=== PATIENT | male | born 1965 | race African-American/Black ===

== ENCOUNTER 2020-04-23 10:43 | Inpatient (IN) | payer OTHER ==
[2020-04-23] VITALS (17 sets, daily range): BP systolic 136–262; BP diastolic 80–175
[~2020-04-23] VITALS: Ht 190.5 cm; Wt 122.9 kg
[2020-04-23 11:30] LABS: ABSOLUTE NEUTROPHILS 6.1 thou/uL (1.4-8.2); BASOPHILS 0.3 % (0.0-2.0); EOSINOPHILS 0.5 % (0.0-3.0); HEMATOCRIT 50.3 % (42.0-52.0); HEMOGLOBIN 16.7 gm/dL (14.0-18.0); LYMPHOCYTES 18.9 % (24.0-44.0); MCH 31.3 pg (26.0-34.0); MCHC 33.2 g/dL (28.0-37.0); MCV 94.3 fL (80.0-100.0); MONOCYTES 8.6 % (1.0-8.0); PLATELET COUNT 197 thou/uL (150-400); POLYS 71.7 % (36.0-66.0); RBC 5.33 mil/uL (4.50-6.00); RDW 13.8 % (10.5-14.5); WBC 8.5 thou/uL (4.0-11.0)
[2020-04-23 11:40] LABS: CALCIUM 9.1 mg/dL (8.5-10.1); CREATININE 2.5 mg/dL (0.7-1.3); POTASSIUM 4.2 mmol/L (3.5-5.1)
[2020-04-23 11:48] LABS: TROPONIN-I 0.3 ng/mL (<0.06)
[2020-04-23 12:35] LABS: CHOLESTEROL 250 mg/dL (<200); HDL CHOLESTEROL 43 mg/dL (>40); LDL CHOLESTEROL 172 mg/dL (<100); TC:HDL 5.8 Ratio (Not establshd); TRIGLYCERIDE 177 mg/dL (<150); VLDL 35 mg/dL (<40)
--- NOTE | 2020-04-23 22:52 | NUR ---
This patient admitted to ICU room 244 at 1945. This RN to bedside. Patient came up on cardene gtt with orders to keep systolic under 180. Patient still complaining of left chest pain. Hydrocodone gives partial pain relief. No cardiac strip changes. Will begin to wean cardene gtt and monitor BP.
[2020-04-24] VITALS (31 sets, daily range): BP systolic 147–183; BP diastolic 88–118
--- NOTE | 2020-04-24 11:48 | NUR ---
ASSUMED CARE OF PT AT 0700, PT IS A/O TIMES 4 AND A GCS OF 15. PT WITH VSS AND AFIBRILE. HE DENIES PAIN OR DISCOMFORT. PT WITH ORDER TO XFER OUT OF ICU. REPORT CALLED AND GIVEN TO ACCEPTING NURSE. PT ASSISTED TO NEXT FLOOR AND SETTLED DOWN IN ROOM.
--- NOTE | 2020-04-24 19:33 | NUR ---
PT TX FROM ICU THIS AM APPROXIMATELY 1000. REPORT TAKEN FROM [facility] ICU/RN. VSS. NSR ON THE MONITOR. PT REPORTS "SOME" CHEST PAIN. PT STATES "ITS WHEN I TAKE A DEEP BREATH IN" WHEN CHEST PAIN OCCURS. CARDIOLOGY AWARE. WILL CONTINUE TO MONITOR. VSS REMAIN STABLE. PT NPO UNTIL RENAL US AND ECHO TO BE COMPLETE. PT RESTING IN BED WITH CALL LIGHT IN REACH. WILL CONTINUE TO MONITOR.
[2020-04-25] VITALS (8 sets, daily range): BP systolic 156–200; BP diastolic 86–113
[2020-04-25 03:58] LABS: ALBUMIN 3.2 g/dL (3.4-5.0); CALCIUM 8.9 mg/dL (8.5-10.1); CREATININE 2.2 mg/dL (0.7-1.3); PHOSPHORUS 3.8 mg/dL (2.5-4.9); POTASSIUM 4.4 mmol/L (3.5-5.1)
--- NOTE | 2020-04-25 04:18 | NUR ---
ASSUME CARE 1900. PT STABLE. BP RUNS HIGH. COMPLAINS OF PAIN IN LEFT CHEST WITH MILD SOA WITH ACTIVITY. GOOD ACTIVITY TOLERANCE. SR ON MONITOR. NO DISTRESS NOTED. ASSESSMENT CHARTED. PROGRESSING WELL WITH POC. PLAN IS TO CONTINUE TO MONITOR AND MANAGE BP/ FOLLOW WITH CARDIOLOGY POC. WILL CONTINUE TO MONITOR AND FOLLOW WITH POC
--- NOTE | 2020-04-25 07:36 | EKG ---
[facility] [address] [employer] [place] [address] ELECTROCARDIOGRAM REPORT Name: KIMO HERNANDEZ Room #: 200-I ADM IN M.R.#: [id number] Admission: 04/23/20 Attend Phys: Pawan Starks Discharge: Date of : 63 Report #: [id number] THIS REPORT FOR: cc: FAM - No family physician/PCP FAM - No family physician/PCP Mathew Vila MD [facility] ~ THIS REPORT FOR: //name// [facility] ED Test Date: 2020-04-23 Test Time: 10:48:08 Pat Name: KIMO HERNANDEZ Department: Room: 200 Gender: M [employer] Parer: homer : 1965 Requested By: eGn Snow Order Number: [id number] MD: Mathew Vila Measurements Intervals [place] Rate: 98 P: 49 CT: 158 QRS: 42 QRSD: 88 T: -6 QT: 360 QTc: 460 Interpretive Statements Sinus rhythm Left atrial enlargement Anterior ST elevation, probably due to LVH No previous ECG available for comparison Electronically Signed On 04-25-2020 7:35:51 STAFFING ASSISTANT by Mathew Vila [email or web address] <ELECTRONICALLY SIGNED> By: Mathew Vila MD, FACC 04/25/20 0735 1048 1048 Mathew Vila MD, [facility] /EPI
--- NOTE | 2020-04-25 08:08 | HC ---
[facility] [place] [address] CONSULTATION Name: KIMO HERNANDEZ Room #: 200-I ADM IN .R.#: [id number] Admission: 04/23/20 Attend Phys: Pawan Starks Discharge: Date of : 63 Report #: [id number] THIS REPORT FOR: cc: JOSEFINA - No family physician/PCP FAM - No family physician/PCP Cody Gibbs MD ~ DATE OF SERVICE: 04/24/2020 CARDIOLOGY CONSULTATION INDICATION: Chest pain. HISTORY OF PRESENT ILLNESS: This is a 55-year-old gentleman presenting with acute onset of chest pain. He has not seen a doctor in more than 8 years. He woke up with a discomfort in the left sternal area radiating up into the neck and shoulder area. He denies any associated symptoms of dyspnea, diaphoresis, nausea or fevers. In the ER, he was noted to have a systolic blood pressure greater than 260 mmHg. Initial workup revealed a troponin level is 0.3. EKG revealed LVH, but no acute ST segment changes. The patient reports that his symptoms are somewhat reproducible with movement of his upper torso. No change with deep inspiration or coughing. It is somewhat reproducible with palpation. PAST MEDICAL HISTORY: Has not seen a physician in quite some time. ALLERGIES: None. MEDICATIONS: None. SOCIAL HISTORY: Denies tobacco use. FAMILY HISTORY: Negative for premature CAD. REVIEW OF SYSTEMS: A full 10-point review of systems performed. Only the pertinent positives and negatives are described in HPI. PHYSICAL EXAMINATION: VITAL SIGNS: Blood pressure is 160/90, heart rate is 80 beats per minute. GENERAL APPEARANCE: This is a well-developed, well-nourished male in no acute distress. HEENT: Normocephalic and atraumatic. Oral mucosa moist. NECK: Supple. LUNGS: Clear to auscultation. CARDIAC: Regular rate and rhythm, S1 and S2 positive. ABDOMEN: Soft, nontender. [facility] [address] [place] [address] CONSULTATION Name: KIMO HERNANDEZ Room #: 200-I [facility].#: [id number] Admission: 04/23/20 Attend Phys: Pawan Starks Discharge: Date of : 63 Report #: [id number] EXTREMITIES: No edema, no cyanosis. IMAGING STUDIES: ECG reveals sinus rhythm, LVH, J point elevation in V2. LABORATORY VALUES: Troponin 0.3. Creatinine is 2.5. ASSESSMENT AND PLAN: 1. Chest pain syndrome, the etiology includes ischemia, musculoskeletal. His symptoms are somewhat reproducible with movement of his torso. However, there is troponin elevation, which may be related to hypertensive urgency. Given his risk factors, he will need to proceed with stress testing. 2. Hypertensive urgency, improved with initiation of labetalol, still has room for increasing the dose. 3. Renal insufficiency, recommend Nephrology evaluation. 4. Hypercholesterolemia, LDL is 172, we will initiate statin therapy. <ELECTRONICALLY SIGNED> By: Cody Gibbs MD 04/25/20807 1116 Cody Gibbs MD /sumi
--- NOTE | 2020-04-25 13:40 | 2DMMODE ---
[facility] [address] [place] [address] 2 D/M-MODE ECHOCARDIOGRAM Name: KIMO HERNANDEZ Room #: 200-I ADM IN M.R.#: [id number] Admission: 04/23/20 Attend Phys: Pawan Starks Discharge: Date of : 63 Report #: [id number] THIS REPORT FOR: cc: FAM - No family physician/PCP FAM - No family physician/PCP Cody Gibbs MD ~ APPROVED REPORT Study performed: 04/25/2020 12:39:17 EXAM: Comprehensive 2D, Doppler, and color-flow Echocardiogram Patient Location: Echo lab Room #: 200 Status: routine BSA: 2.51 HR: 66 bpm BP: 163/93 mmHg Rhythm: NSR Other Information Study Quality: Good Indications Congestive Heart Failure Chest Pain Hx: HTN. 2D Dimensions RVDd: 39.42 mm IVSd: 15.66 (7-11mm) LVOT Diam: 23.50 (18-24mm) LVDd: 49.98 mm PWd: 13.33 (7-11mm) Ascending Ao: 33.30 (22-36mm) LVDs: 32.91 (25-40mm) Aortic Root: 32.84 mm Volumes Left Atrial Volume (Systole) Single Plane 4CH: 90.43 mL Single Plane 2CH: 70.92 mL LA ESV Index: 34.00 mL/m2 Mitral Valve E/A Ratio: 1.2 MV Decel. Time: 219.29 ms MV E Max Iain.: 0.92 m/s [facility] [address] [place] [address] 2 D/M-MODE ECHOCARDIOGRAM Name: KIMO HERNANDEZ Room #: 200-I [facility] [place] ..#: [id number] Admission: 04/23/20 Attend Phys: Pawan Teague Discharge: Date of : 63 Report #: [id number] MV A Iain.: 0.75 m/s MV PHT: 63.59 ms IVRT: 115.34 ms Pulmonary Valve PV Peak Iain.: 0.95 m/s PV Peak Gr.: 3.62 mmHg Pulmonary Vein P Vein S: 0.47 m/s P Vein A: 0.20 m/s P Vein D: 0.35 m/s P Vein A Dur.: 175.3 msec P Vein S/D Ratio: 1.34 Tricuspid Valve RAP Estimate: 5.00 mmHg Left Ventricle The left ventricle is normal size. There is normal LV segmental wall motion. Mild concentric left ventricular hypertrophy. The left ventricular systolic function is normal. LVEF is 55-60%. Moderate diastolic dysfunction is present (pseudonormal filling). Right Ventricle The right ventricle is normal size. The right ventricular systolic function is normal. Atria Left atrium is at the upper limits of normal. The right atrium size is normal. Aortic Valve The aortic valve is normal in structure. No aortic regurgitation is present. There is no aortic valvular stenosis. Mitral Valve The mitral valve is normal in structure. Trace mitral regurgitation. No evidence of mitral valve stenosis. Tricuspid Valve The tricuspid valve is normal in structure. There is no tricuspid valve regurgitation noted. Unable to assess PA pressure. Pulmonic Valve The pulmonary valve is normal in structure. Trace pulmonic regurgitation. [facility] [address] [place] [address] 2 D/M-MODE ECHOCARDIOGRAM Name: KIMO HERNANDEZ Room #: 200-I [facility] [place] ..#: [id number] Admission: 04/23/20 Attend Phys: Pawan Teague Discharge: Date of : 63 Report #: [id number] The aortic root is normal in size. The ascending aorta is normal in size. IVC is normal in size and collapses >50% with inspiration. Pericardium There is no pericardial effusion. <Conclusion> The left ventricle is normal size. Mild concentric left ventricular hypertrophy. The left ventricular systolic function is normal. Moderate diastolic dysfunction is present (pseudonormal filling). The right ventricle is normal size. Left atrium is at the upper limits of normal. The aortic valve is normal in structure. Trace mitral regurgitation. <ELECTRONICALLY SIGNED> By: Cody Gibbs MD 04/25/20 1340 134 1340 Cody Gibbs MD /INF
--- NOTE | 2020-04-25 17:55 | NUR ---
met with patient who resides at home alone. 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 He does not have health insurance. SWS consulted for suicidal ideation in the past. Patient reports he answered the question yes because he has thought of suicide in the past. Patient reports he is not SI at this time. He hopes to dc home tomorrow. Gave [facility] information and [facility] as well as counseling resources if needed in future.
--- NOTE | 2020-04-25 18:35 | NUR ---
ASSESSMENT DOCUMENTED, BP REMAINS ELEVATED, MEDICATED PER ORDERS, AND PATIENT EDUCATED, AND WILL CONTINUE WITH POC.
[2020-04-26] VITALS: BP 148/88
[2020-04-26 05:00] VITALS: BP 151/86
[2020-04-26 05:24] LABS: ALBUMIN 3.3 g/dL (3.4-5.0); CREATININE 2.2 mg/dL (0.7-1.3); PHOSPHORUS 3.5 mg/dL (2.5-4.9); POTASSIUM 4.3 mmol/L (3.5-5.1); TROPONIN-I 0.16 ng/mL (<0.06)
[2020-04-26 07:25] VITALS: BP 151/99
[2020-04-26 11:00] VITALS: BP 167/115
[2020-04-26] MEDS ORDERED: VOLTAREN GEL 1100 G1 TOP (11:00)
[2020-04-26] MEDS ORDERED: ASPIR 8181 MG PO (11:00)
[2020-04-26] MEDS ORDERED: NORVASC5 MG PO (11:00)
[2020-04-26] MEDS ORDERED: TRANDATE 200 M200 M1 PO (11:00)
[2020-04-26] MEDS ORDERED: TRAMADOL 50 MG50 MG PO (11:00)
[2020-04-26] MEDS ORDERED: LIPITOR 20 MG T20 M1 PO (11:00)
[2020-04-26] MEDS ORDERED: ACETAMINOPHEN325 M1 PO (11:00)
--- NOTE | 2020-04-26 12:57 | EXE ---
[facility] [place] [address] [address] STRESS ECHOCARDIOGRAM Name: KIMO HERNANDEZ Room #: 200-I ADM IN M.R.#: [id number] Admission: 04/23/20 Attend Phys: Pawan Starks Discharge: Date of : 63 Report #: [id number] THIS REPORT FOR: cc: JOSEFINA - No family physician/PCP FAM - No family physician/PCP Cody Gibbs MD ~ THIS REPORT FOR: //name// APPROVED REPORT Study performed: 04/26/2020 12:01:16 Exam: Stress Echocardiogram Indication: Elevated troponin, Chest pain Patient Location: In-Patient Stress Nurse: Cher Carreon RN Room #: 200 Status: routine Ht: 6 ft 3 in HR: 78 bpm BP: 151/99 mmHg Rhythm: NSR Medical History Allergies: No known drug allergies Cardiac Risk Factors: HTN, Hyperlipidemia, Obesity Procedure The patient underwent an Exercise Stress Test using the Sukhdeep Protocol. Blood pressure, heart rate, and EKG were monitored. An Echocardiogram was performed by coroner technician in four stages in quad fashion. At peak stress, four selected images were obtained and placed side by side with resting images for comparison. Stress Test Details Stress Test: Exercise stress testing was performed using a Sukhdeep protocol. HR Resting HR: 78 bpm Max Heart Rate (APMHR): 164 bpm Max HR Achieved: 157 bpm Target HR (85% APMHR): 139 bpm % of APMHR: 95 Recovery HR: 107 bpm HR response to stress: Normal HR response to stress [facility] [address] [place] [address] STRESS ECHOCARDIOGRAM Name: KIMO HERNANDEZ Room #: 200-I [facility] IN [facility].#: [id number] Admission: 04/23/20 Attend Phys: Pawan Teague Discharge: Date of : 63 Report #: [id number] Resting BP: 151/99 mmHg Max BP: 280/110 mmHg Recovery BP: 200/116 mmHg BP response to stress: Hypertensive response to stress. ECG Resting ECG: Sinus Rhythm, nonspecific ST-T abnormalities Stress ECG: Sinus Rhythm, nonspecific ST-T abnormalities ST Change: Non-ischemic Clinical Reason for Termination: Fatigue Stress Symptoms: None Exercise duration: 8 min 34 sec Highest Stage Achieved: Stage 3: 3.4 mph at 14% grade. Exercise capacity: 10.40 METs Pre-Stress Echo The resting Echocardiogram showed normal left ventricular contractility with an estimated Ejection Fraction of about 55-60%. The resting echocardiogram demonstrated normal wall motion in all wall segments. Normal wall motion in all segments on baseline images. Post-Stress Echo The stress Echocardiogram showed normal left ventricular contractility with an estimated Ejection Fraction of about 60-65%. Compared to rest, there were no stress-induced wall motion abnormalities. Normal augmentation of wall motion in all segments on post stress images. Clinical No clinical or ECG evidence for ischemia. Conclusion Clinical Response: Non-ischemic Exercise Capacity: Average Stress ECG Response: Non-ischemic Stress Echo Images: Non-ischemic The left ventricle is normal in size and wall thickness in both the rest and stress images. Other Information [facility] [place] [address] STRESS ECHOCARDIOGRAM Name: MARYKIMO OPAL Room #: 200-I [facility] IN M.R.#: [id number] Admission: 04/23/20 Attend Phys: Pawan Teague Discharge: Date of : 63 Report #: [id number] Study Quality: Good <Conclusion> The left ventricle is normal in size and wall thickness in both the rest and stress images. <ELECTRONICALLY SIGNED> By: Cody Gibbs MD 04/26/20 1257 1257 1257 Cody Gibbs MD /INF
[2020-04-26] MEDS ORDERED: CATAPRES0.1 MG PO (14:49)
[2020-04-26] MEDS ORDERED: LISINOPRIL10 MG PO (14:49)
[2020-04-26] MEDS ORDERED: AMLODIPINE BESY10 MG PO (14:49)
[2020-04-26 15:00] VITALS: BP 155/93
[2020-04-26] MEDS ORDERED: HYDRALAZINE 2525 MG PO (15:13)
--- NOTE | 2020-04-26 16:19 | NUR ---
ASSUMED CARE AT SHIFT CHANGE, ALERT AND ORIENTED X4. BP CONTROLLED WITH NEW MEDS ORDER. MEDICATION AND DISCHARGE INSTRUCTIONS GIVEN TO PATIENT AND VERBALIZED UNDERSTAING. WAITING FOR FAMILY TO TAKE HIM HOME.
--- NOTE | 2020-04-26 17:21 | NUR ---
Patient to discharge home. Reports he cannot afford medication vouched in amount of $104.94
== END 2020-04-26 18:13 | disposition home or self-care (01) | DRG 315 ==
LOC: ER 10:43 → EROBS 12:34 → ICU 19:21 → 2N 04-24 09:38
PROVIDERS: Emergency Medicine; ADMIT Hospitalist; ATTEND Hospitalist
DX: I31.9 Disease of pericardium, unspecified (principal); I16.9 Hypertensive crisis, unspecified; N17.9 Acute kidney failure, unspecified; I16.0 Hypertensive urgency; I10 Essential (primary) hypertension; E78.00 Pure hypercholesterolemia, unspecified; E78.5 Hyperlipidemia, unspecified; E66.9 Obesity, unspecified; Z68.34 Body mass index [BMI] 34.0-34.9, adult; Z79.82 Long term (current) use of aspirin; Z79.899 Other long term (current) drug therapy
CPT/HCPCS: 10078; 10081